=== PATIENT | male | born 1960 | race Caucasian/White ===

== ENCOUNTER 2022-06-02 07:49 | Outpatient (CLI) | payer OTHER, SELFPAY | END 2022-06-02 07:50 | disposition home or self-care (01) | LOC: NFLDREF 06-03 12:05 | PROVIDERS: PCP Family Medicine; Referring Provider Family Medicine; Visit Provider Family Medicine | DX: Z00.00 Encounter for general adult medical examination without abnormal findings (principal); E78.5 Hyperlipidemia, unspecified; Z12.5 Encounter for screening for malignant neoplasm of prostate; R74.8 Abnormal levels of other serum enzymes | CPT/HCPCS: 80053; 80061; 84153 ==

== ENCOUNTER 2022-10-09 08:10 | Outpatient (CLI) | payer OTHER, SELFPAY | END 2022-10-09 08:11 | disposition home or self-care (01) | LOC: NFLDREF 10-10 14:12 | PROVIDERS: PCP Family Medicine; Referring Provider Family Medicine; Visit Provider Family Medicine | DX: E78.5 Hyperlipidemia, unspecified (principal) | CPT/HCPCS: 80053; 80061; 84450; 84460 ==

== ENCOUNTER 2023-06-05 13:35 | Outpatient (CLI) | payer OTHER, SELFPAY | END 2023-06-05 13:36 | disposition home or self-care (01) | LOC: WOUND 13:36 | PROVIDERS: PCP Family Medicine; Visit Provider Nurse Practitioner Family | DX: S61.012A Laceration without foreign body of left thumb without damage to nail, initial encounter (principal); W26.0XXA Contact with knife, initial encounter | CPT/HCPCS: G0463 ==

== ENCOUNTER 2023-11-23 08:08 | Outpatient (CLI) | payer OTHER, SELFPAY | END 2023-11-23 08:09 | disposition home or self-care (01) | LOC: NFLDREF 11-27 08:40 | PROVIDERS: PCP Family Medicine; Referring Provider Family Medicine; Visit Provider Family Medicine | DX: E78.5 Hyperlipidemia, unspecified (principal); R74.8 Abnormal levels of other serum enzymes; Z12.5 Encounter for screening for malignant neoplasm of prostate | CPT/HCPCS: 80053; 80061; G0103 ==

== ENCOUNTER 2024-12-20 08:45 | Outpatient (CLI) | payer MEDICARE, SELFPAY | END 2024-12-20 08:46 | disposition home or self-care (01) | PROVIDERS: PCP Family Medicine; Referring Provider Family Medicine; Visit Provider Family Medicine | DX: E78.5 Hyperlipidemia, unspecified (principal); R74.8 Abnormal levels of other serum enzymes; Z12.5 Encounter for screening for malignant neoplasm of prostate | CPT/HCPCS: 80053; 80061; G0103 ==